=== PATIENT | male | born 1975 | race American Indian/Alaskan Native ===

== ENCOUNTER 2021-05-21 07:01 | Emergency (ER) | payer SELFPAY ==
--- NOTE | 2021-05-21 07:44 | Emergency Department Report ---
ED CPR HPI - General Chief Complaint: Cardiac Arrest/CPR Stated Complaint: CARDIAC ARREST Time Seen by Provider: 05/21/21 07:14 - History of Present Illness Initial Comments: Patient is a 45-year-old F [place] male presenting in cardiac arrest. Paramedics called out to the home secondary to respiratory distress. Patient was in a tripod position but was ANO x3 at time of arrival. As the patient was being loaded into the ambulance he did lose consciousness and lost his pulse. Was intubated with a Jose airway. Were unable to intubate the patient. Also unable to obtain IV access. Patient in PEA during transport. Is approximately 15-minute downtime for transport. ED Review of Systems ROS: Stated complaint: CARDIAC ARREST Other details as noted in HPI Comment: All other systems reviewed and negative ED Past Medical Hx - Past Medical History Previous Medical History?: Yes Hx Congestive Heart Failure: Yes Hx COPD: Yes ED Physical Exam - General General appearance: obtunded - Head Head exam: Present: atraumatic, normocephalic - Eye Eye exam: Present: other (Pupils are fixed and dilated) - ENT ENT exam: Present: mucous membranes moist, other (Large amount of frothy sputum within the oral cavity) - Neck Neck exam: Present: normal inspection - Respiratory Respiratory exam: Present: other (No spontaneous heart tones or breath sounds) - GI/Abdominal GI/Abdominal exam: Present: soft, distended - Rectal Rectal exam: Present: deferred - Extremities Exam Extremities exam: Present: other (3+ pulmonary edema in the bilateral extremities) - Back Exam Back exam: Present: normal inspection - Neurological Exam Neurological exam: Present: other (GCS of 3) - Skin Skin exam: Present: warm (Me), dry, intact, normal color. Absent: rash ED Medical Decision Making - Medical Decision Making CPR was continued when the patient arrived. The Jose airway was removed and I was able to intubate the patient using a glide scope and 8-0 endotracheal tube. Good color change on the CO2 monitor. IO was able to be placed in the left tibia. Patient given epinephrine and bicarb. No return of spontaneous circulation. Patient in bradycardia PEA. Pronounced [id number] Critical care attestation.: If time is entered above; I have spent that time in minutes in the direct care of this critically ill patient, excluding procedure time. ED Disposition Clinical Impression: Cardiac arrest Disposition: 20 Is pt being admited?: No Does the pt Need Aspirin: No Condition: Stable Time of Disposition: 07:44
[2021-05-21] MEDS ORDERED: SODIUM BICARB 8.4% 50 MEQ/50 ML SYRINGE IV ONE (16:07)
[2021-05-21] MEDS ORDERED: EPINEPHrine 1 MG/10 ML SYRINGE ONE (16:07)
== END 2021-05-21 13:33 ==
LOC: EDBD → ED 07:01
DX: I46.9 Cardiac arrest, cause unspecified (principal); I50.9 Heart failure, unspecified
CPT/HCPCS: 31500; 92950; 99285; J0171; J3490